=== PATIENT | male | born 1975 | race Caucasian/White ===

== ENCOUNTER 2021-08-04 15:20 | Observation (INO) | payer BC ==
[~2021-08-04] VITALS: Ht 182.9 cm; Wt 122.0 kg
[2021-08-04 15:40] VITALS: BP 165/97
[2021-08-04 15:53] LABS: URINE BILIRUBIN NEGATIVE (Negative); URINE BLOOD TRACE (Negative); URINE CLARITY CLEAR; URINE COLOR YELLOW; URINE GLUCOSE-RANDOM NEGATIVE (Negative); URINE KETONES NEGATIVE (Negative); URINE LEUKOCYTES-REFLEX NEGATIVE (Negative); URINE NITRITE-REFLEX NEGATIVE (Negative); URINE PROTEIN NEGATIVE (Negative); URINE UROBILINOGEN 0.2 E.U./dl (0.2-1.0)
[2021-08-04 15:59] LABS: ABSOLUTE BASOPHILS 0.1 thou/uL (0.0-0.2); ABSOLUTE EOSINOPHILS 0.1 thou/uL (0.0-0.7); ABSOLUTE LYMPHOCYTES 2.1 thou/uL (0.8-5.3); ABSOLUTE MONOCYTES 0.5 thou/uL (0.0-1.2); ABSOLUTE NEUTROPHILS 5.6 thou/uL (1.6-8.1); BASOPHILS 1.3 %; EOSINOPHILS 0.6 %; HEMATOCRIT 45.5 % (42.0-52.0); HEMOGLOBIN 15.5 gm/dL (14.0-18.0); MCH 32.4 pg (26.0-34.0); MCHC 34.1 g/dL (28.0-37.0); MONOCYTES 5.6 %; MPV 6.8 fl. (7.2-11.1); NUCLEATED RBCS 0 /100WBC; PLATELET COUNT* 304 thou/uL (150-400); POLYS 67.5 %; RBC 4.79 mil/uL (4.50-6.00); RDW-CV 13.3 % (10.5-14.5); WBC 8.3 thou/uL (4.0-11.0)
[2021-08-04 16:03] LABS: CALCIUM 9.1 mg/dL (8.5-10.1); CREATININE 1.2 mg/dL (0.6-1.3); POTASSIUM 3.8 mmol/L (3.5-5.1)
[2021-08-04 16:07] LABS: ALBUMIN 4.3 g/dL (3.4-5.0); TOTAL BILIRUBIN 0.5 mg/dL (<0.1-1.0); TOTAL PROTEIN 7.7 g/dL (6.4-8.2)
--- NOTE | 2021-08-04 16:42 | EKG ---
[place] [address] ELECTROCARDIOGRAM REPORT Name: THAD CHAU Room: [facility]#: [id number] Admission: 08/04/21 Attend Phys: Discharge: Date of : 71 Date of Service: 08/04/21 1557 Report #: [id number] THIS REPORT FOR: //name// [facility] ED Test Date: 2021-08-04 Test Time: 15:57:00 Pat Name: THAD CHAU Department: Room: Gender: Dock Worker: : 1975 Requested By: Spencer Castorena Order Number: [id number] MD: Chaparro Hernadez Measurements Intervals [place] Rate: 63 P: -17 IA: 129 QRS: 11 QRSD: 115 T: 35 QT: 417 QTc: 427 Interpretive Statements Sinus rhythm Incomplete right bundle branch block ST elev, probable normal early repol pattern No previous ECG available for comparison Electronically Signed On 08-04-2021 16:41:50 CORPORATE TECHNICAL RECRUITER by Chaparro Hernadez [email or web address] <ELECTRONICALLY SIGNED> By: Chaparro Hernadez MD, [facility] 08/04/21 164 155 56 Chaparro Hernadez MD, FAC /EPI
[2021-08-04 19:12] VITALS: BP 124/86
[2021-08-04 22:06] VITALS: BP 126/74
[2021-08-04 22:25] VITALS: BP 126/74
[2021-08-05 04:00] VITALS: BP 113/78
[2021-08-05 04:12] LABS: HEMATOCRIT 43.2 % (42.0-52.0); HEMOGLOBIN 14.7 gm/dL (14.0-18.0); MCH 32.5 pg (26.0-34.0); MCV 95.5 fL (80.0-100.0); MPV 7.2 fl. (7.2-11.1); RBC 4.53 mil/uL (4.50-6.00); RDW-CV 13.6 % (10.5-14.5)
[2021-08-05 04:29] LABS: CALCIUM 8.5 mg/dL (8.5-10.1); CREATININE 1.1 mg/dL (0.6-1.3)
[2021-08-05 08:05] VITALS: BP 128/81
[2021-08-05 16:18] VITALS: BP 108/78
[2021-08-05 20:00] VITALS: BP 109/74
[2021-08-05 23:53] VITALS: BP 115/70
[2021-08-06 08:10] VITALS: BP 112/79
--- NOTE | 2021-08-06 23:23 | OP ---
[address] [address] OPERATIVE REPORT Name: THAD CHAU Room: [address] Aster Chaudhry#: [id number] Admission: 08/04/21 Attend Phys: Jeronimo Patterson II Discharge: 08/06/21 Date of : 71 Report #: [id number] THIS REPORT FOR: cc: FAM - No family physician/PCP FAM - No family physician/PCP Jeronimo Patterson III, DO ~ DATE OF SURGERY: 08/04/2021 Francisco Javier Plascencia DO, PGY5 is dictating operative report on behalf of Jeronimo Patterson III, DO. PREOPERATIVE DIAGNOSIS: Incarcerated ventral hernia. POSTOPERATIVE DIAGNOSIS: Incarcerated ventral hernia. PROCEDURE PERFORMED: Open incarcerated ventral hernia repair with mesh. SURGEON: Jeronimo Patterson DO. CO-SURGEON: Francisco Javier Plascencia DO, PGY5. VP OF MARKETING: Trey MCKEON. ANESTHESIA: General. ESTIMATED BLOOD LOSS: 30 mL. SPECIMENS: None. COMPLICATIONS: None. IMPLANTS: A 6.[address] [place] mesh. COMPLICATIONS: None. FINDINGS: Incarcerated small bowel without any evidence of bowel ischemia with a small hernia defect. HISTORY OF PRESENT ILLNESS: The patient is a 45-year-old male who presented to the Emergency Room with abdominal pain. CT scan revealed likely incarcerated ventral hernia containing small bowel and also an incarcerated umbilical hernia. We discussed the need for urgent hernia repair, possible bowel resection. Risks, benefits and alternatives discussed at length and he agreed to proceed with surgery. DESCRIPTION OF PROCEDURE: After consent was obtained, [place] [address] OPERATIVE REPORT Name: THAD CHAU [address] [id number] Admission: 08/04/21 Attend Phys: Jeronimo Patterson II Discharge: 08/06/21 Date of : 71 Report #: [id number] the operating room and placed in supine position. SCDs applied to bilateral extremities. The patient was safety belted to the bed. General endotracheal anesthesia was administered without any complications. Two grams Ancef given for surgical prophylaxis. A 10 blade scalpel was used to make a vertical incision just above the suspected hernia. Electrocautery was used to dissect down to the level of the hernia itself and to achieve hemostasis. Once the hernia contents were inspected, there was no evidence of any bowel ischemia. The hernia defect was actually extended with Bovie electrocautery as the defect itself was too small to reduce the bowel back into the abdomen. Once the defect was extended, we were able to completely reduce the hernia contents back into the abdomen. An intraperitoneal plane was created with a blunt finger sweep to ensure adequate landing zone for a mesh. We elected to place a 6.[address] [place] mesh. This was placed in the abdomen, secured at 4 points with a 0 Prolene suture. After the mesh was secured, the fascial defect was closed over top of the mesh, taking care to include mesh in our bites. At this point, the hernia was completely repaired with a layered closure of the subcutaneous tissue with 3-0 Vicryl was then performed and a running subcuticular 4-0 Monocryl was used to close skin. Skin glue was applied to the incision. All needle, instrument and sponge counts were correct x 2 at the end of the case. The patient was awoken from general anesthesia and transferred to PACU in stable condition. <ELECTRONICALLY SIGNED> By: Jeronimo Patterson III, 08/06/21 2323 06 Collie Patterson III, DO /nt
== END 2021-08-06 15:00 | disposition home or self-care (01) ==
LOC: M.ERS 15:20 → M.TBA-ER 17:53 → M.ORTHSURG 17:53
PROVIDERS: Family Medicine; ADMIT Student in an Organized Health Care Education/Training Program; ATTEND Student in an Organized Health Care Education/Training Program
DX: K43.6 Other and unspecified ventral hernia with obstruction, without gangrene (principal); Z20.822 Contact with and (suspected) exposure to COVID-19; K56.600 Partial intestinal obstruction, unspecified as to cause; Z79.899 Other long term (current) drug therapy